=== PATIENT | male | born 1980 | race Caucasian/White ===

== ENCOUNTER 2017-01-06 14:01 | Emergency (ER) | payer SELFPAY ==
[2017-01-06] MEDS ORDERED: IBUPROFEN 600 MG TABLET PO ONE (14:18)
--- NOTE | 2017-01-06 14:24 | Emergency Department Record ---
History of Present Illness - General Chief complaint: Pain Stated complaint: R SIDE PAIN/WC Time Seen by Provider: 01/06/17 14:12 Source: Patient Mode of Arrival: Ambulatory Limitations: No limitations - History of Present Illness Initial comments: The patient is here due to falling off a fork lift 10 hours ago after being hit by another fork lift. He landed on his R side and injured his R chest and ribs. He denies any head injury or head ache and had no LOC but does have mild R posterior neck pain. The patient denies any L sided CP, AP, nausea, vomiting or back pain. He did eat normally since the injury and has been ambulating normally. The patient did work his normal job until 11am with no problems. MD Complaint: Other Onset/Timin -: Hour(s) Location: Left History of Same: No Severity scale (1-10): 7 Quality: Sharp Consistency: Constant Improves with: Nothing Worsens with: Nothing Associated Symptoms: Denies other symptoms - Related Data Home Medications Medication Instructions Recorded Confirmed Last Taken No Home Med [NO HOME MEDS] 01/06/17 01/06/17 Unknown Allergies Allergy/AdvReac Type Severity Reaction Status Date / Time No Known Drug Allergies Allergy Verified 01/06/17 14:09 Travel Screening - Travel/Exposure Within Last 30 Days Have you traveled within the last 30 days?: No Review of Systems Constitutional: Denies: Chills, Fever Eyes: Denies: Eye discharge ENT: Denies: Congestion Respiratory: Denies: Cough, Dyspnea Past Medical History - SOCIAL HISTORY Smoking Status: Current every day smoker Alcohol Use: None Drug Use: None - RESPIRATORY Hx Respiratory Disorders: No - CARDIOVASCULAR Hx Cardio Disorders: No - NEURO Hx Neuro Disorders: No - GI Hx GI Disorders: No - Hx Genitourinary Disorders: No - ENDOCRINE Hx Endocrine Disorders: No - MUSCULOSKELETAL Hx Musculoskeletal Disorders: Yes Hx Arthritis: Yes - PSYCH Hx Psych Problems: No - HEMATOLOGY/ONCOLOGY Hx Hematology/Oncology Disorders: No Family Medical History Any Significant Family History?: No Physical Exam - General General Appearance: Alert, Oriented x3, Cooperative, No acute distress - Head Head exam: Atraumatic, Normocephalic, Normal inspection - Eye Eye exam: Normal appearance, PERRL - ENT Throat exam: Normal inspection. negative: Tonsillar erythema, Tonsillar exudate - Neck Neck exam: Normal inspection, Full ROM. negative: Tenderness - Respiratory Respiratory exam: Normal lung sounds bilaterally, Chest wall tenderness (There is tenderness to the R superior ribs in the mid axillary line. There is an abrasion to the superior mid axillary line also.). negative: Accessory muscle use, Decreased breath sounds, Respiratory distress, Wheezes - Cardiovascular Cardiovascular Exam: Regular rate, Normal rhythm, Normal heart sounds - GI/Abdominal GI/Abdominal exam: Soft, Normal bowel sounds. negative: Tenderness - Extremities Extremities exam: Normal inspection, Full ROM, Normal capillary refill. negative: Tenderness Image of Full Body: 1 - abrasion. - Back Back exam: Reports: Normal inspection, Full ROM. Denies: Muscle spasm, Rash noted, Tenderness - Neurological Neurological exam: Alert, Normal gait. negative: Abnormal gait, Motor sensory deficit Course Vital Signs 01/06/17 14:09 Temperature 98.5 F Pulse Rate [ 78 Pulse Ox Probe] Respiratory 18 Rate Blood Pressure 140/85 [Left Arm] Pulse Ox 97 - Reevaluation(s) Reevaluation #1: The patient is doing well. He still has some pain with palpation and chest rotation but denies any AP, SOB, or MISTY. I did explain to him that his xrays are all WNL's per Rad. He is to take his home Naprosyn and since he feels he will be OK to work he is to return to work tomorrow. 01/06/17 16:02 Medical Decision Making - Data Complexity MDM Data: Labs Ordered and/or Reviewed, X-Ray Ordered and/or Reviewed - Radiology Data Radiology results: Report reviewed (R Ribs, and C-spine: Neg per Rad.) Disposition Disposition: Discharge Clinical Impression: Contusion Qualifiers: Encounter type: initial encounter Contusion area: thoracic wall Disposition: Home, Self-Care Condition: (1) Good Instructions: Contusion in Adults (ED) Additional Instructions: Please use your home Naprosyn for pain. Rest when possible. Please see your PCP if not better in 2-3 days and return to the ER for any worsening pain, fever, or vomiting. Forms: Patient Portal Access Time of Disposition: 16:01
[2017-01-06 15:13] LABS: URINE APPEARANCE CLEAR; URINE BILIRUBIN NEGATIVE (NEGATIVE); URINE BLOOD NEGATIVE (NEGATIVE); URINE COLOR YELLOW; URINE GLUCOSE (UA) NEGATIVE (NEGATIVE); URINE KETONE NEGATIVE (NEGATIVE); URINE LEUKOCYTE ESTERASE NEGATIVE (NEGATIVE); URINE NITRITE NEGATIVE (NEGATIVE); URINE PROTEIN NEGATIVE (NEGATIVE); URINE UROBILINOGEN 0.2 E.U./dL (0.20 - 1.00)
--- NOTE | 2017-01-07 12:54 | RADIOLOGY REPORT ---
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 TECHNIQUE: Seven views of the cervical spine were obtained. Comparison: None. Encounter: Initial. FINDINGS: C1-T1 segments are visualized. Straightening of the cervical spine. The lateral masses of C1 and C2 have a normal configuration and the odontoid is intact. No fracture or subluxation. The neural foramina are patent. The prevertebral soft tissues are unremarkable. IMPRESSION: STRAIGHTENING OF THE CERVICAL SPINE, OTHERWISE NO INTRINSIC OR TRAUMATIC ABNORMALITY IDENTIFIED. JOB NUMBER: [id number] MTDD
--- NOTE | 2017-01-07 14:14 | RADIOLOGY REPORT ---
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 TECHNIQUE: PA view of the chest and five oblique views of the right ribs were obtained. Comparison: None. Encounter: Initial. FINDINGS: The lungs are clear. The cardiac silhouette and diaphragm are unremarkable. No rib fractures. IMPRESSION: 1. NEGATIVE CHEST EXAMINATION. 2. NEGATIVE RIGHT RIB EXAMINATION. JOB NUMBER: [id number] MTDD
== END 2017-01-06 16:06 | disposition home or self-care (01) ==
LOC: ER 14:01
DX: S20.211A Contusion of right front wall of thorax, initial encounter (principal); S20.311A Abrasion of right front wall of thorax, initial encounter; M54.2 Cervicalgia; R07.89 Other chest pain; V83.5XXA Driver of special industrial vehicle injured in nontraffic accident, initial encounter; Y99.0 Civilian activity done for income or pay
CPT/HCPCS: 72050; 81003; 99283; 99284